=== PATIENT | male | born 1965 | race Caucasian/White ===

== ENCOUNTER 2023-03-20 14:49 | Emergency (ER) | payer MEDICAID, SELFPAY ==
--- NOTE | ~2023-03-20 | XR_ITS ---
EXAMINATION: XR chest 2V DATE: 03/20/2023 15:37 INDICATION: Right-sided chest pain, hypertension TECHNIQUE: PA and lateral views of the chest are obtained. COMPARISON: None available FINDINGS: The lungs are free of acute opacities. No pleural effusion or pneumothorax. The cardiomedia stinal silhouette is normal. There is mild thoracic spondylosis. A calcified nodule of the left lung base is consistent with old granulomatous disease. IMPRESSION: 1. No acute cardiopulmonary abnormality. Reviewed, dictated and finalized at location F.
[2023-03-20 14:52] VITALS: BP 148/72; PULSE 101; RESP 18; TEMP 36.6; O2SAT 97
--- NOTE | 2023-03-20 14:55 | ECG_ITS ---
Measurements Intervals [place] Rate: 95 P: 21 KS: 112 QRS: -17 QRSD: 86 T: -7 QT: 325 QTc: 410 Interpretive Statements SINUS RHYTHM WITH SHORT [place] INTERVAL MINIMAL ST DEPRESSION CONSIDER INFERIOR ISCHEMIA ABNORMAL ECG NO PREVIOUS ECG AVAILABLE FOR COMPARISON Electronically Signed On 03-21-2023 7:25:28 CDT by Guru Smith M.D.
[2023-03-20 15:12] LABS: Basophils Absolute Auto 0.1 K/mm3 (0.0-0.1); Basophils Percent Auto 0.5 % (0.2-1.2); Eosinophils Absolute Auto 0.2 K/mm3 (0-0.3); Eosinophils Percent Auto 2.4 % (0-4.4); Hematocrit 44.2 % (42.0-52.0); Hemoglobin 14.5 g/dL (14.0-18.0); Immature Granulocyte Absolute 0.03 K/mm3 (0.00-0.031); Immature Granulocyte Percent A 0.3 % (0-0.5); Lymphocytes Absolute Auto 2.09 K/mm3 (0.9-3.2); Lymphocytes Percent Auto 22.9 % (18.3-44.2); Mean Corpuscular HGB Conc 32.8 g/dl (32-36); Mean Corpuscular Hemoglobin 29.7 pg (26-34); Mean Corpuscular Volume 90.4 fl (80-100); Mean Platelet Volume 9.4 fl (7.4-10.4); Monocytes Absolute Auto 0.5 K/mm3 (0.1-0.6); Monocytes Percent Auto 5.7 % (2.6-8.5); Neutrophils Absolute Auto 6.2 K/mm3 (1.3-6.7); Neutrophils Percent Auto 68.2 % (45.5-73.1); Platelet Count Result 261 k/mm3 (150-375); Red Blood Count 4.89 M/mm3 (4.6-6.20); Red Cell Distribution Width 12.9 % (11.5-14.5); White Blood Count 9.1 K/mm3 (4.5-10.0)
[2023-03-20 15:22] LABS: Alanine Aminotransferase 24 U/L (6-50); Albumin Level 4.9 g/dL (3.5-5.1); Alkaline Phosphatase 78 U/L (38-126); Anion Gap 12 mmol/L (8-16); Aspartate Amino Transferase 26 U/L (17-59); Bilirubin,Total 0.6 mg/dL (0.2-1.3); Blood Urea Nitrogen 23 mg/dL (9-20); Calcium 9.6 mg/dL (8.4-10.2); Carbon Dioxide 25 mmol/L (22-30); Chloride 100 mmol/L (98-107); Estimated CRCL calculation 55 ml/min; Estimated Glomerular Filt Rate 57; Glucose 125 mg/dL (65-110); INR 0.9; Lipase 280 U/L (23-300); Potassium 4.1 mmol/L (3.4-5.0); Prothrombin Time 12.8 Seconds (11.1-14.7); Sodium 137 mmol/L (137-145)
[2023-03-20 15:23] LABS: Partial Thromboplastin Time 24.5 SECONDS (22.3-36.8)
[2023-03-20 15:33] LABS: Troponin I < 0.012 ng/mL (0.000-0.034)
[2023-03-20 17:50] VITALS: BP 135/71; PULSE 87; RESP 20; TEMP 36.9; O2SAT 98
[2023-03-20] MEDS: MORPHINE SULFATE (*CRX) 2 MG/ML INJ IV PUSH (18:37)
[2023-03-20] MEDS: ONDANSETRON INJ 4 MG/2 ML VIAL IV PUSH (18:37)
[2023-03-20 18:46] LABS: Troponin I < 0.012 ng/mL (0.000-0.034)
[2023-03-20 18:47] VITALS: BP 129/65; PULSE 90; RESP 18; O2SAT 98
--- NOTE | 2023-03-20 19:50 | ED.ABDPAIN ---
HPI - Abdominal Pain General Chief Complaint: Abdominal Pain Stated Complaint: RUQ pain Time Seen by Provider: 03/20/23 18:03 Source: patient and family (spouse) Mode of arrival: ambulatory Limitations: no limitations History of Present Illness HPI narrative: patient is a very pleasant 57 yo male with a past medical history of HLD., HTN, tobacco dependence, Erectile dysfunction who presents to the ED today ambulatory for evaluation of pain to the right rib cage/upper abdomen and right side of back. pain started about 2 days. states it feels very similar to when he had shingles about 10 years ago. he has had nausea/vomiting due to pain. also felt like he had the chills. denies any diarrhea, constipation, chest pain,shortness of breath, difficulty urinating. denies obvious rash. he is under a lot of stress recently. Related Data Allergies Allergy/AdvReac Type Severity Reaction Status Date / Time No Known Allergies Allergy Unknown Unverified 03/20/23 17:46 Review of Systems Review of Systems: Review of Systems:? CONST: No fever. no diaphoresis. HEENT: No sore throat. C/V:? No chest pain. No palpitations. RESP: No cough. GI: pain to right upper abdomen/ribcage region.nausea/vomiting due to pain. denies diarrhea/constipation. : No dysuria.?? M/S: No joint pain. Pain to the right side/upper rib cage and right mid back. SKIN: No rash. NEURO: No headache or focal numbness or weakness? PSYCH: No depression All systems reviewed & are unremarkable except as noted in HPI and below Exam Narrative: EXAMINATION OF ORGAN SYSTEMS/BODY AREAS:? Constitutional: Vital signs per nursing GENERAL:resting on exam stretcher, appears uncomfortable in pain at this time. non-toxic HEAD:? Normal with no signs of head trauma. EYES:? EOMI, conjunctiva normal ENT:? Hearing grossly intact LUNGS:? Nonlabored breathing. HEART:? Regular rate and rhythm ABD:? Soft, nontender to palpation. no mass. no hepatomegaly. no rebound/guarding noted. EXT: Normal range of motion SKIN:?zoster appearing rash to right upper abdomen below rib cage/right lateral aspect of ribs, right thoracic back. does not cross midline. see photo description. no vesicles or scabbed aspects noted. NEURO: Alert and oriented x 3. No gross focal sensory or strength deficits. PSYCH: Normal affect Skin: Rashes: rashes noted and other Full body images: 1. erythematous maculopapular raised lesions noted- no vesicles at this time 2. erythematous maculopapular raised lesions noted- no vesicles at this time- DOES NOT CROSS MIDLINE Course Reevaluation(s) Reevaluation #1: resting at this time. spouse at bedside. agreeable with dc plan home. Date: 03/20/23 Time: 18:45 Vital Signs Vital signs: Vital Signs Temperature 97.8 F 03/20/23 14:52 Pulse Rate 101 H 03/20/23 14:52 Respiratory Rate 18 03/20/23 14:52 Blood Pressure 148/72 H 03/20/23 14:52 Pulse Oximetry 97 03/20/23 14:52 Temperature 98.4 F 03/20/23 17:50 Pulse Rate 90 03/20/23 18:47 Respiratory Rate 18 03/20/23 18:47 Blood Pressure 129/65 03/20/23 18:47 Pulse Oximetry 98 03/20/23 18:47 MDM - Abdominal Pain MDM Narrative Medical decision making narrative: 57 yo presents to the ED for pain to the RUQ below ribs/back. he has a hx of shingles and states the pain started 2 days ago and he had not noticed a rash yet however the pain feels similar. exam findings consistent with zoster rash. Labs without emergent findings. no imaging needed as this pain is not due to intraabdominal organ dysfunction but the pain from the rash in that area. will treat with famciclovir. does not cross midline. given medication while here. discussed only to take the prescribed pain meds for severe pain and that this medication can be addictive and to not drink or drive while taking it. spouse present at bedside. Patient is nontoxic in appearance. Stable re-evaluation exam just before discharge. Patient i
== END 2023-03-20 19:02 | disposition home or self-care (01) ==
PROVIDERS: Student in an Organized Health Care Education/Training Program; Emergency Provider Nurse Practitioner
DX: B02.9 Zoster without complications (principal); E78.5 Hyperlipidemia, unspecified; I10 Essential (primary) hypertension; F17.200 Nicotine dependence, unspecified, uncomplicated
CPT/HCPCS: 36415; 71046; 80053; 83690; 84484; 85025; 85610; 85730; 93005; 96374; 96375; 99284; J2270; J2405